=== PATIENT | female | born 1950 | race Caucasian/White ===

== ENCOUNTER 2023-09-20 17:55 | Emergency (ER) | payer SELFPAY ==
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
[2023-09-20] MEDS: MOTRIN 400 MG PO (21:32)
[2023-09-20] MEDS: TYLENOL SUSPENSION 650 MG PO (23:50)
[2023-09-21 02:18] VITALS: BP 191/68
[2023-09-21 02:45] VITALS: BP 161/67
== END 2023-09-21 02:45 | disposition home or self-care (01) ==
LOC: EMR 17:55
PROVIDERS: EMERGENCY PHYSICIAN Student in an Organized Health Care Education/Training Program; FAMILY PHYSICIAN Physician Assistant Medical
DX: S82.831A Other fracture of upper and lower end of right fibula, initial encounter for closed fracture (principal); S82.401A Unspecified fracture of shaft of right fibula, initial encounter for closed fracture; W01.0XXA Fall on same level from slipping, tripping and stumbling without subsequent striking against object, initial encounter; I10 Essential (primary) hypertension
CPT/HCPCS: 99284; 29515; 73590; 73610; 73700

== ENCOUNTER → 2023-09-23 11:11 | Outpatient (REF) | payer MEDICARE, OTHER, SELFPAY ==
[2023-09-23 12:52] LABS: % Basophils 0.5 % (0-2); % Eosinophils 0.4 % (0-6); % Immature Granulocytes 0.4 % (0-0.5); % Lymphocytes 17.3 % (20.5-51.1); % Monocytes 8.7 % (1.7-9.3); % Neutrophils 72.7 % (42.2-75.2); Absolute Lymphocytes 1.5 10^3/uL (1.2-3.4); Absolute Monocytes 0.7 10^3/uL (0.1-0.6); Absolute Neutrophils 6.2 10^3/uL (1.4-6.5); Hematocrit 35.1 % (37.0-47.0); Hemoglobin 11.7 g/dL (12.0-16.0); Mean Corp Hgb Conc. 33.3 g/dL (33.0-37.0); Mean Corpuscular Volume 93.1 fL (81.0-99.0); Mean Platelet Volume 10.6 fL (7.4-10.4); Nucleated Red Blood Cells % 0 %; Platelet Count 184 10^3/uL (130-400); Red Blood Cell Count 3.77 10^6/uL (4.20-5.40); Red Cell Dist. Width 12.5 % (11.5-14.5); White Blood Cell Count 8.5 10^3/uL (4.8-10.8)
[2023-09-23 14:00] LABS: Blood Urea Nitrogen 20 mg/dl (7-17); Calcium 9.6 mg/dl (8.4-10.2); Carbon Dioxide 29 mmol/L (22-30); Chloride 101 mmol/L (98-107); Glucose 122 mg/dl (70-99); Potassium 4.5 mmol/L (3.5-5.1); Sodium 135 mmol/L (135-145); eGFR > 60.00
== END ==
LOC: RCS 11:11
PROVIDERS: ATTENDING PHYSICIAN Student in an Organized Health Care Education/Training Program; FAMILY PHYSICIAN Physician Assistant Medical
DX: Z01.818 Encounter for other preprocedural examination (principal)
CPT/HCPCS: 36415; 80048; 85025; 93005

== ENCOUNTER 2023-09-27 06:32 | Day surgery (SDC) | payer MEDICARE, OTHER, SELFPAY ==
[2023-09-27] VITALS (13 sets, daily range): BP systolic 153–180; BP diastolic 59–72; BMI 21.2
[2023-09-27] MEDS: NORMOSOL-R 1000 IV (11:21)
[2023-09-27] MEDS: VANCOCIN 200 IV (11:22)
[2023-09-27] MEDS: DILAUDID 0.25 MG IV ×2 (14:15→14:26)
[2023-09-27] MEDS: ZOFRAN 4 MG IV (15:05)
== END 2023-09-27 17:35 | disposition home or self-care (01) ==
LOC: SDS 06:32
PROVIDERS: ATTENDING PHYSICIAN Student in an Organized Health Care Education/Training Program
DX: S82.851A Displaced trimalleolar fracture of right lower leg, initial encounter for closed fracture (principal); W01.0XXA Fall on same level from slipping, tripping and stumbling without subsequent striking against object, initial encounter
CPT/HCPCS: 27823; 27829; 73610; 76000; C1713; C1769